=== PATIENT | female | born 1990 | race African-American/Black ===

== ENCOUNTER 2024-06-16 23:34 | Inpatient (IN) | payer OTHER ==
[2024-06-17 00:52] VITALS: BMI 24.7
[2024-06-17] MEDS ORDERED: Ondansetron PF 4 MG/2 ML Vial IVP PRN (01:28)
[2024-06-17 02:57] LABS: %Basophils 1.1 % (0.0-1.0); %Eosinophils 3.3 % (0.0-10.0); %Lymphocytes 41.7 % (21.0-51.0); %Monocytes 11.5 % (0.0-10.0); %Neutrophils 42.2 % (42.0-75.0); Hematocrit 32.2 % (36.0-47.0); Hemoglobin 10.7 g/dL (12.0-16.0); Mean Corpuscular HGB CONC 33.2 g/dL (32.0-36.0); Mean Corpuscular Hemoglobin 29.1 pg (27.0-31.0); Mean Corpuscular Volume 87.5 fL (78.0-98.0); Mean Platelet Volume 10.6 fL (7.4-10.4); Platelet Count 304 10x3/uL (130-400); RBC Distribution Width 12.4 % (11.5-14.5); Red Blood Cell (RBC) Count 3.68 mill/uL (4.20-5.40)
[2024-06-17 04:53] LABS: ALT (SGPT) 267 U/L (8-55); AST (SGOT) 152 U/L (5-34); Alkaline Phosphatase 60 U/L (40-110); Anion Gap 17 mmol/L (10-20); BUN (Urea Nitrogen) 10 mg/dL (7.0-18.7); Bilirubin, Total 0.5 mg/dL (0.2-1.2); Calc. Creatinine Clearance 100 mL/min (70-130); Calcium 8.4 mg/dL (7.8-10.44); Carbon Dioxide 21 mmol/L (22-29); Chloride 104 mmol/L (98-107); Estimated GFR 109; Globulin 3.2 g/dL (2.4-3.5); Glucose 122 mg/dL (70-105); Magnesium 1.9 mg/dL (1.6-2.6); Potassium 3.7 mmol/L (3.5-5.1); Protein, Total 6.2 g/dL (6.0-8.3); Sodium 138 mmol/L (136-145)
[2024-06-17] MEDS: Furosemide 20 MG (2 mL) VIAL SLOW IVP SCH (05:36)
[2024-06-17 06:34] LABS: A1c 109.081 g/dL; Hb (HGBA1c) 2715.5486 umol/L; Hemoglobin A1c 5.8 % (4.0-6.0)
[2024-06-17] MEDS: Enoxaparin 60 MG (0.6 mL) SYRINGE SC SCH (09:58)
[2024-06-17] MEDS: Acetaminophen 325 MG TAB PO PRN (12:57)
[2024-06-17] MEDS: Magnesium 2 GM/50 ML(in water) 2 GM in Premix 1 BAG IVPB SCH (18:50)
[2024-06-17] MEDS: Sacubitril 24MG/Valsartan 26 MG TAB PO SCH (20:25)
[2024-06-18 04:59] LABS: #Basophils 0.09 10x3/uL (0.0-0.2); %Eosinophils 7.1 % (0.0-10.0); %Lymphocytes 51.9 % (21.0-51.0); %Monocytes 9.6 % (0.0-10.0); %Neutrophils 30.2 % (42.0-75.0); Hematocrit 35.6 % (36.0-47.0); Hemoglobin 11.7 g/dL (12.0-16.0); Mean Corpuscular HGB CONC 32.9 g/dL (32.0-36.0); Mean Corpuscular Hemoglobin 28.5 pg (27.0-31.0); Mean Corpuscular Volume 86.6 fL (78.0-98.0); Mean Platelet Volume 10.9 fL (7.4-10.4); Platelet Count 357 10x3/uL (130-400); RBC Distribution Width 12.7 % (11.5-14.5); Red Blood Cell (RBC) Count 4.11 mill/uL (4.20-5.40)
[2024-06-18 05:17] LABS: ALT (SGPT) 209 U/L (8-55); AST (SGOT) 81 U/L (5-34); Albumin 2.8 g/dL (3.5-5.0); Alkaline Phosphatase 59 U/L (40-110); Anion Gap 12 mmol/L (10-20); BUN (Urea Nitrogen) 12 mg/dL (7.0-18.7); Bilirubin, Total 0.4 mg/dL (0.2-1.2); Calc. Creatinine Clearance 104 mL/min (70-130); Calcium 8.4 mg/dL (7.8-10.44); Carbon Dioxide 25 mmol/L (22-29); Chloride 103 mmol/L (98-107); Estimated GFR 115; Globulin 3.2 g/dL (2.4-3.5); Glucose 113 mg/dL (70-105); Magnesium 2.2 mg/dL (1.6-2.6); Potassium 3.7 mmol/L (3.5-5.1); Sodium 136 mmol/L (136-145)
[2024-06-18] MEDS: Sacubitril 24MG/Valsartan 26 MG TAB PO SCH ×2 (10:23→19:57)
[2024-06-18] MEDS ORDERED: CATH FS SCH (11:45)
[2024-06-18] MEDS: Aspirin 81 mg Enteric Coated Tablet PO SCH (13:18)
[2024-06-19 06:09] LABS: #Basophils 0.11 10x3/uL (0.0-0.2); %Basophils 1.3 % (0.0-1.0); %Eosinophils 6.1 % (0.0-10.0); %Lymphocytes 57.3 % (21.0-51.0); %Monocytes 7.7 % (0.0-10.0); %Neutrophils 27.4 % (42.0-75.0); Hemoglobin 12.5 g/dL (12.0-16.0); Mean Corpuscular HGB CONC 32.9 g/dL (32.0-36.0); Mean Corpuscular Hemoglobin 28.7 pg (27.0-31.0); Mean Corpuscular Volume 87.4 fL (78.0-98.0); Mean Platelet Volume 10.7 fL (7.4-10.4); Platelet Count 431 10x3/uL (130-400); RBC Distribution Width 12.6 % (11.5-14.5); Red Blood Cell (RBC) Count 4.35 mill/uL (4.20-5.40)
[2024-06-19 06:47] LABS: ALT (SGPT) 177 U/L (8-55); AST (SGOT) 55 U/L (5-34); Albumin 3.2 g/dL (3.5-5.0); Alkaline Phosphatase 60 U/L (40-110); Anion Gap 16 mmol/L (10-20); BUN (Urea Nitrogen) 14 mg/dL (7.0-18.7); Bilirubin, Total 0.4 mg/dL (0.2-1.2); Calc. Creatinine Clearance 96 mL/min (70-130); Calcium 8.6 mg/dL (7.8-10.44); Carbon Dioxide 23 mmol/L (22-29); Chloride 101 mmol/L (98-107); Estimated GFR 107; Globulin 3.4 g/dL (2.4-3.5); Glucose 119 mg/dL (70-105); Magnesium 2.1 mg/dL (1.6-2.6); Potassium 3.5 mmol/L (3.5-5.1); Protein, Total 6.6 g/dL (6.0-8.3); Sodium 136 mmol/L (136-145)
[2024-06-19] MEDS ORDERED: Heparin 10,000 UNITS/ 10 ML VIAL ONE (07:27)
[2024-06-19] MEDS ORDERED: Verapamil 5 MG/2 ML VIAL ONE (07:27)
[2024-06-19] MEDS ORDERED: Nitroglycerin 50 MG/250 ML BOT 250 ML ONE (07:27)
[2024-06-19] MEDS ORDERED: Midazolam HCl 2 mg/2 ml Vial ONE (07:28)
[2024-06-19] MEDS ORDERED: fentaNYL 50 mcg/mL 1 mL Vial ONE (07:28)
[2024-06-19] MEDS ORDERED: Acetaminophen/Codeine 30-300mg Tablet PO PRN ×2 (09:02)
[2024-06-19] MEDS ORDERED: Sodium Chloride 0.9% 200 ML IV PRN (09:02)
[2024-06-19] MEDS ORDERED: Nitroglycerin 0.4 MG TAB (25 Tab Bottle) SL PRN (09:02)
[2024-06-19] MEDS: Aspirin 81 mg Enteric Coated Tablet PO SCH (09:32)
[2024-06-19] MEDS ORDERED: Iopamidol 370 76% 100 ML VIAL ONE (15:08)
[2024-06-21 07:11] LABS: #Basophils 0.11 10x3/uL (0.0-0.2); %Basophils 1.7 % (0.0-1.0); %Eosinophils 8.6 % (0.0-10.0); %Lymphocytes 57.2 % (21.0-51.0); %Monocytes 9.2 % (0.0-10.0); %Neutrophils 23.1 % (42.0-75.0); Hemoglobin 13.3 g/dL (12.0-16.0); Mean Corpuscular HGB CONC 31.7 g/dL (32.0-36.0); Mean Corpuscular Hemoglobin 28.5 pg (27.0-31.0); Mean Corpuscular Volume 89.9 fL (78.0-98.0); Mean Platelet Volume 9.9 fL (7.4-10.4); Platelet Count 411 10x3/uL (130-400); RBC Distribution Width 12.9 % (11.5-14.5); Red Blood Cell (RBC) Count 4.67 mill/uL (4.20-5.40)
[2024-06-21 07:29] LABS: ALT (SGPT) 128 U/L (8-55); AST (SGOT) 52 U/L (5-34); Albumin 3.1 g/dL (3.5-5.0); Alkaline Phosphatase 58 U/L (40-110); Anion Gap 13 mmol/L (10-20); BUN (Urea Nitrogen) 15 mg/dL (7.0-18.7); Bilirubin, Total 0.3 mg/dL (0.2-1.2); Calc. Creatinine Clearance 114 mL/min (70-130); Calcium 8.7 mg/dL (7.8-10.44); Carbon Dioxide 22 mmol/L (22-29); Chloride 105 mmol/L (98-107); Estimated GFR 118; Globulin 3.6 g/dL (2.4-3.5); Glucose 112 mg/dL (70-105); Potassium 3.9 mmol/L (3.5-5.1); Protein, Total 6.7 g/dL (6.0-8.3); Sodium 136 mmol/L (136-145)
[2024-06-21] MEDS: Furosemide 20 MG TAB PO SCH (08:47)
[2024-06-21] MEDS: Sacubitril 24MG/Valsartan 26 MG TAB PO SCH (20:57)
[2024-06-22 11:48] VITALS: TEMP 97.8
[2024-06-22 13:23] VITALS: BP 82/57
== END 2024-06-22 16:11 | disposition home or self-care (01) | DRG 287 ==
LOC: SURG B 06-17 00:24 → OBS 06-17 00:31 → OBSVTOIN 06-17 01:28
PROVIDERS: ADMIT Internal Medicine; ATTEND Internal Medicine
PROC: 4A023N7 Measurement of Cardiac Sampling and Pressure, Left Heart, Percutaneous Approach (ICD-10-PCS; principal; 2024-06-19)
PROC: B2111ZZ Fluoroscopy of Multiple Coronary Arteries using Low Osmolar Contrast (ICD-10-PCS; 2024-06-19)
DX: I50.23 Acute on chronic systolic (congestive) heart failure (principal); I42.8 Other cardiomyopathies; I47.20 Ventricular tachycardia, unspecified; D64.9 Anemia, unspecified; I34.0 Nonrheumatic mitral (valve) insufficiency; Z79.01 Long term (current) use of anticoagulants; Z86.718 Personal history of other venous thrombosis and embolism; Z79.899 Other long term (current) drug therapy
CPT/HCPCS: 36415; 71045; 71275; 80053; 80306; 81001; 83036; 83605; 83690; 83735; 83880; 84443; 84484; 84703; 85025; 93005; 93306; 93458; 93798; 94760; 96374; 99152; C1769; C1894; J1644; J1650; J1940; J2250; J3010; J3475; Q9967